=== PATIENT | female | born 1995 | race Caucasian/White ===

== ENCOUNTER 2017-03-16 21:11 | Emergency (ER) | payer OTHER | END 2017-03-17 05:00 | disposition home or self-care (01) | LOC: M ED 21:11 | DX: R58 Hemorrhage, not elsewhere classified (principal); Z79.3 Long term (current) use of hormonal contraceptives | CPT/HCPCS: 73660 ==

== ENCOUNTER → 2017-06-08 | Outpatient (CLI) | payer OTHER | LOC: M RAD 16:36 | DX: M25.532 Pain in left wrist (principal); M79.632 Pain in left forearm | CPT/HCPCS: 73221 ==